=== PATIENT | male | born 1975 | race Caucasian/White ===

== ENCOUNTER → 2021-05-26 | Outpatient (CLI) | payer BC | LOC: RT 11:47 | DX: R07.9 Chest pain, unspecified (principal) | CPT/HCPCS: 93005 ==

== ENCOUNTER → 2021-06-21 | Outpatient (CLI) | payer BC | LOC: RAD 13:06 | DX: R07.9 Chest pain, unspecified (principal); I10 Essential (primary) hypertension; R06.00 Dyspnea, unspecified; R00.0 Tachycardia, unspecified | CPT/HCPCS: 71046 ==